=== PATIENT | male | born 1975 | race Caucasian/White ===

== ENCOUNTER 2017-08-30 22:26 | Emergency (ER) | payer BC ==
[2017-08-30] MEDS: KETOROLAC TROMETHAMINE 10 MG TAB PO (23:15)
== END 2017-08-30 23:26 | disposition home or self-care (01) ==
LOC: M ED 22:26
DX: S39.012A Strain of muscle, fascia and tendon of lower back, initial encounter (principal); X50.1XXA Overexertion from prolonged static or awkward postures, initial encounter; Y92.89 Other specified places as the place of occurrence of the external cause; L40.9 Psoriasis, unspecified; Z88.0 Allergy status to penicillin; Z72.0 Tobacco use; Z91.013 Allergy to seafood; Z79.899 Other long term (current) drug therapy
CPT/HCPCS: 99282

== ENCOUNTER → 2021-07-07 | Outpatient (REF) | payer BC ==
[~2021-07-07] MED LIST: BACL10TA2 PO; HYDR-3715 PO; NAPR-837 PO; TRIA1OI TD
[2021-07-08 09:41] LABS: FOLLICLE STIMULATING HORMONE 30.6 mIU/mL (1.4-18.1); LUTEINIZING HORMONE 10.4 mIU/mL (1.5-9.3)
[2021-07-09 17:07] LABS: TESTOSTERONE FREE (DIRECT) 4.1 pg/mL (6.8-21.5)
[2021-07-10 11:17] LABS: PROLACTIN 2.7 NG/ML (2.1-17.7)
== END ==
LOC: M LAB REF 16:09
PROVIDERS: ATTEND Internal Medicine
DX: N52.9 Male erectile dysfunction, unspecified (principal); R79.89 Other specified abnormal findings of blood chemistry

== ENCOUNTER → 2022-03-05 | Outpatient (REF) | payer BC ==
[2022-03-05 17:54] LABS: LUTEINIZING HORMONE 11.8 mIU/ML (1.5-9.3)
[2022-03-05 17:55] LABS: FOLLICLE STIMULATING HORMONE 29.7 mIU/ML (1.4-18.1)
== END ==
LOC: M LAB REF 16:19
PROVIDERS: ATTEND Internal Medicine
DX: N52.9 Male erectile dysfunction, unspecified (principal)

== ENCOUNTER → 2023-04-28 | Outpatient (REF) | payer BC ==
[2023-04-28 14:37] LABS: FOLLICLE STIMULATING HORMONE 32.4 mIU/ML (1.4-18.1); LUTEINIZING HORMONE 11.4 mIU/ML (1.5-9.3)
== END ==
LOC: M LAB REF 12:50
PROVIDERS: ATTEND Internal Medicine
DX: N52.9 Male erectile dysfunction, unspecified (principal)

== ENCOUNTER → 2023-06-14 | Outpatient (REF) | payer BC | LOC: M LAB REF 16:09 | PROVIDERS: ATTEND Physician Assistant Medical | DX: M79.18 Myalgia, other site (principal) ==

== ENCOUNTER → 2023-10-07 | Outpatient (REF) | payer BC ==
[2023-10-07 17:18] LABS: FOLLICLE STIMULATING HORMONE 31.8 mIU/ML (1.4-18.1)
[2023-10-07 17:19] LABS: LUTEINIZING HORMONE 12.8 mIU/ML (1.5-9.3); PROLACTIN 17.99 NG/ML (2.1-17.7)
== END ==
LOC: M LAB REF 16:26
PROVIDERS: ATTEND Internal Medicine
DX: N52.9 Male erectile dysfunction, unspecified (principal); R53.83 Other fatigue

== ENCOUNTER 2024-01-18 10:28 | Day surgery (SDC) | payer BC ==
[~2024-01-18] VITALS: Ht 203.2 cm; Wt 85.3 kg
[~2024-01-18 10:28] MED LIST changes: +METH4PACK PO; +NS 250 ML IV ONE; +OMEP10CASR PO; +TAPI60CR TOP
[2024-01-18 12:20] VITALS: TEMP 98.6
[2024-01-18] MEDS ORDERED: propofoL 200 MG/20 ML VIAL As Ordered ONE (12:45)
[2024-01-18 13:09] VITALS: BP 107/70; O2SAT 98
== END 2024-01-18 13:11 | disposition home or self-care (01) ==
LOC: M OPP 10:28
PROVIDERS: ATTEND Surgery
DX: K92.1 Melena (principal); K64.0 First degree hemorrhoids; D12.3 Benign neoplasm of transverse colon; Z79.899 Other long term (current) drug therapy; Z88.0 Allergy status to penicillin; Z91.013 Allergy to seafood; Z91.018 Allergy to other foods; Z87.891 Personal history of nicotine dependence

== ENCOUNTER → 2024-01-19 | Outpatient (REF) | payer BC ==
[~2024-01-19] MED LIST changes: -NS 250 ML IV ONE
== END ==
LOC: M LAB REF 12:25
PROVIDERS: ATTEND Physician Assistant
DX: B34.9 Viral infection, unspecified (principal)

== ENCOUNTER → 2025-01-16 | Outpatient (REF) | payer BC | LOC: M LAB REF 12:07 | PROVIDERS: ATTEND Physician Assistant | DX: J02.9 Acute pharyngitis, unspecified (principal) ==